=== PATIENT | female | born 1935 | race Hispanic/Latino ===

== ENCOUNTER 2019-07-14 12:48 | Inpatient (IN) | payer MEDICARE ==
[~2019-07-14] VITALS: Ht 152.4 cm; Wt 58.5 kg
--- OUTSIDE RECORDS SUMMARY | 2019-07-14 12:51 | XMS REPORT ---
Author Author [facility] Address Unknown Phone Unavailable Care Team Providers Care Liberal Arts Teacher Name Role Phone Unavailable Unavailable Payers Payer Name Policy Type Policy Number Effective Date Expiration Date Problems This patient has no known problems. Allergies, Adverse Reactions, Alerts Allergy Name Allergy Type Status Severity Reaction(s) Onset Date Inactive Date Treating Clinician Comments No Known Allergies DA Active U 2014-03-04 00:00:00 Medications This patient has no known medications. Results Test Description Test Time Test Comments Text Results Atomic Results Result Comments - CT C-SPINE W/O CONTRAST 2019-07-05 06:09:00 Name: DORON LION [facility] FSED : 1935 Age/S: 83 / F [address] [facility] Unit #: [id number] Loc: [address] Phys: Palmer Kothari [place], [place] [address] Acct: [id number] Dis Date: Status: REG ER PHONE #: Exam Date: 07/05/2019 0557 FAX #: Reason: fall EXAMS: CPT CODE: [id number] CT C-SPINE W/O CONTRAST 27801 Location: T 18 CT cervical spine, 07/05/19 TECHNIQUE: CT examination of the cervical spine without contrast was performed on a helical scanner without contrast with coronal and sagittal reformatted imaging obtained. This was acquired with 2D reformatted acquired using MPR software on CT workstation. Scanning conducted in axial plane from skull base down to upper thoracic spine. 1.25mm contiguous slice thickness acquired . The examination was performed with low radiation dose technique. Automatic exposure control was utilized to reduce radiation dose. Examination conducted on updated helical CT scanner CLINICAL HISTORY: Neck pain. Trauma , patient presenting to the emergency room FINDINGS: There is no acute fracture or subluxation. Cervical spondylosis is seen but without compromise of the canal . Mild curvature of the spine to the left. Significant displacement C5-6 and C6-C7. Assessment of the skull base unremarkable. Prevertebral soft tissues unremarkable. The atlano axial joint is unremarkable . No pneumothorax or rib fracture is seen IMPRESSION: No acute fracture Cervical spondylosis at 0609 Reported and signed by: Naya Beltrán M.D. CC: Alessio Amador MD; Palmer Kothari DO Technologist:Al Villalpando CTDI: DLP: [email or web address] Date/Time: 07/05/2019 (608) [email or web address] Orig Print D/T: S: 07/05/2019 (611) PAGE 1 Signed Report - CT HEAD/BRAIN W/O CONT 2019-07-05 06:01:00 Name: AYADDORON [facility] FSED : 1935 Age/S: 83 / F [address] [facility] [address] Unit #: [id number] Loc: [address] Phys: Palmer Kothari [place], [place] [address] Acct: [id number] Dis Date: Status: REG ER PHONE #: Exam Date: 07/05/2019 0557 FAX #: Reason: fall EXAMS: CPT CODE: [id number] CT HEAD/BRAIN W/O CONT 63254 Location: T 18 CT head, 07/05/19 COMPARISON EXAMS: None of the brain TECHNIQUE: CT examination of the brain was performed without contrast on a helical scanner. Scanning conducted from skull base through the vertex in the axial plane acquiring contiguous 5mm slice thickness . The examination was performed on updated helical CT scanner utilizing low-dose radiation technique. Automatic exposure control timing was utilized to minimize ra diation dose. CLINICAL HISTORY: Trauma, headache. Patient presenting to the emergency room. Status post fall FINDINGS: There is presence of a subcutaneous hematoma seen along the left parietal region without skull fracture or pneumocephalus. Atrophy age appropriate. No acute parenchymal hemorrhage. No positive mass-effect, midline shift, extra-axial fluid collections or intracranial hemorrhages seen. In particular, no subarachnoid hemorrhage is identified. No intra or extra-axial masses. No skull fracture is seen. The globes are intact. No acute territorial infarction is seen. No cerebral edema is seen. No significant sinus disease is seen. IMPRESSION: No acute finding other than a scalp hematoma at 0601 Reported and signed by: Naya Calderon M.D. CC: Alessio Amador MD; Palmer Kothari DO Technologist:Al Villalpando CTDI: DLP: Trnscb Date/Time: 07/05/2019 (600) [email or web address] Orig Print D/T: S: 07/05/2019 (604) PAGE 1 Signed Report
[2019-07-14] MEDS ORDERED: ASPIRIN 81 MG CHEW TAB PO ONE (13:15)
[2019-07-14] MEDS ORDERED: ONDANSETRON HCL INJ 2MG/ML 2ML 2 MG/ML VIAL IV NR (13:30)
[2019-07-14 13:36] LABS: LYMPHOCYTES # (AUTO) 0.2 (1.0-3.2); LYMPHOCYTES % 7.7 % (18.0-39.1); MEAN CORPUSCULAR HEMOGLOBIN 43.5 pg (28-32); MEAN CORPUSCULAR HGB CONC 34.6 g/dL (31-35); MEAN CORPUSCULAR VOLUME 125.9 fL (81-99); MONOCYTES % 1.4 % (4.4-11.3); NEUTROPHILS % 89.5 % (38.7-80.0); PLATELET COUNT 83 x10e3/uL (140-360); RED BLOOD COUNT 1.08 x10e6/uL (3.6-5.1); RED CELL DISTRIBUTION WIDTH 15.9 % (11.7-14.4)
[2019-07-14 13:43] LABS: BILIRUBIN,URINE NEGATIVE (NEGATIVE); CLARITY,URINE SL CLOUDY (CLEAR); COLOR,URINE YELLOW (YELLOW); KETONES,URINE NEGATIVE (NEGATIVE); LEUKOCYTE ESTERASE ,URINE MODERATE (NEGATIVE); NITRITE,URINE NEGATIVE (NEGATIVE); PROTEIN,URINE DIPSTICK NEGATIVE (NEGATIVE); URINE UROBILINOGEN 0.2 mg/dL (0.2 - 1)
[2019-07-14 13:48] LABS: INR 1.06; PROTHROMBIN TIME 14.3 seconds (11.9-14.5)
[2019-07-14 13:49] LABS: PARTIAL THROMBOPLASTIN TIME 25.5 seconds (23.8-35.5)
[2019-07-14 13:55] LABS: HEMATOCRIT 13.6 % (34.2-44.1); HEMOGLOBIN 4.7 g/dL (12.0-16.0)
--- NOTE | 2019-07-14 13:55 | NUR ---
LAB CALLED TO REPORT CRITICAL HGB 4.7 AND HCT 13.6, DIESEL MECHANIC APPRENTICE TO COME DOWN TO DEPARTMENT FOR RE-DRAW, ODETTE GARCIA UPDATING ORDERS.
[2019-07-14 13:59] LABS: ALBUMIN 3.1 g/dL (3.5-5.0); ALBUMIN/GLOBULIN RATIO 1.1 (0.8-2.0); ANION GAP 11.2 mmol/L (8-16); CALCIUM 8.6 mg/dL (8.4-10.2); CREATININE, SERUM 1.5 mg/dL (0.57-1.11); POTASSIUM 5.2 mmol/L (3.5-5.1)
[2019-07-14] MEDS ORDERED: SODIUM CHLORIDE 0.9% 250ML 250 ML IV ONE (14:00)
[2019-07-14 14:02] LABS: BACTERIA,URINE MANY /HPF; EPITHELIAL CELLS,URINE FEW /LPF; RBC,URINE 0-5 /HPF (0-5)
[2019-07-14 14:07] LABS: CREATINE KINASE MB 0.5 ng/mL (0-5.0)
--- NOTE | 2019-07-14 14:22 | Diagnostic Imaging Report ---
EXAMINATION: CHEST SINGLE (NOT PORTABLE) INDICATION: Anemia, hypotension, nausea COMPARISON: None FINDINGS: LINES/TUBES:None LUNGS:The lungs are moderately inflated. Patchy airspace opacity at the retrocardiac left lung base partially silhouettes the left hemidiaphragm. PLEURA:No pleural effusion or pneumothorax. MEDIASTINUM:The cardiomediastinal silhouette appears normal in size and shape. BONES/SOFT TISSUES:No acute osseous injury. ABDOMEN:No free air under the diaphragm. IMPRESSION: Patchy retrocardiac left lung base airspace opacity consistent with aspiration or pneumonia in the proper clinical setting. RECOMMENDATIONS: Chest radiograph in 6-8 weeks to assess for resolution. Signed by: Ruperto Palmer MD on 07/14/2019 2:18 PM
[2019-07-14] MEDS ORDERED: CEFTRIAXONE SOD 1 GM/NS 50 ML 50 ML IV ONE ×2 (14:55→18:15)
[2019-07-14] MEDS ORDERED: SODIUM CHLORIDE FLUSH 10 ML SYR INJ PRN (15:15)
[2019-07-14] MEDS ORDERED: ONDANSETRON HCL INJ 2MG/ML 2ML 2 MG/ML VIAL IV PRN (15:15)
[2019-07-14] MEDS ORDERED: DEXTROSE 50% SYRINGE 50 ML IV PRN (16:00)
[2019-07-14] MEDS: INSULIN REGULAR, HUMAN 100 UNIT/1 ML 3ML VIAL SQ SCH ×2 (16:30→21:00)
--- NOTE | 2019-07-14 17:03 | Diagnostic Imaging Report ---
EXAM: CT Chest WITHOUT intravenous contrast 07/14/2019 2:55 PM INDICATION: Shortness of breath. COMPARISON: None TECHNIQUE: Chest was scanned utilizing a multidetector helical scanner from the lung apex through the level of the adrenal glands without administration of IV contrast. Coronal and sagittal reformations were obtained. Routine protocol was performed. IV CONTRAST: None RADIATION DOSE: Total DLP: 400.9 mGy*cm. Dose modulation, iterative reconstruction, and/or weight based adjustment of the mA/kV was utilized to reduce the radiation dose to as low as reasonably achievable. COMPLICATIONS: None FINDINGS: LINES/ TUBES: None. LUNGS AND AIRWAYS: The central airways are patent. There is extensive airspace consolidation at the dependent left lower lobe. Scattered micronodules at the right upper, right middle, and right lower lobes. Bibasilar dependent subsegmental atelectasis. Interlobular septal thickening compatible with mild pulmonary edema. PLEURA: Small left pleural effusion. No pneumothorax. HEART AND MEDIASTINUM: Atrophic thyroid gland. No supraclavicular, axillary, or mediastinal lymphadenopathy. The heart is at the upper limits of normal for size. Scattered atherosclerotic calcifications of the coronary arteries and thoracic aorta. Trace pericardial effusion. Small sliding hiatal hernia. UPPER ABDOMEN: Noncontrast enhanced images of the upper abdomen demonstrate no focal abnormality in the partially visualized liver and spleen. Bilateral adrenal thickening without discrete nodule. BONES: No acute osseous injury. No suspicious lytic or blastic lesions. Degenerative changes of the visualized spine. SOFT TISSUES: Unremarkable. IMPRESSION: Extensive airspace consolidation at the dependent left lower lobe. In the acute setting, this is most likely pneumonia. However, follow-up chest radiograph in 4-6 weeks is recommended to document resolution and assess for underlying pulmonary lesion. Mild pulmonary edema. Atherosclerotic vascular calcifications including of the coronary arteries. Signed by: Ruperto Palmer MD on 07/14/2019 4:59 PM
[2019-07-14 17:10] VITALS: BP 114/58
[2019-07-14 17:34] LABS: ANISOCYTOSIS SLIGHT; HYPOCHROMASIA MODERATE; LYMPHOCYTES % (MANUAL) 9 % (19-48); MONOCYTES % (MANUAL) 1 % (3.4-9.0); MYELOCYTES % (MANUAL) 1 % (0-0); NEUTROPHILS % (MANUAL) 89 % (40-74)
[2019-07-14 17:35] LABS: PLATELET ESTIMATE SLIGHTLY DECREASED; PLATELET MORPHOLOGY COMMENT NORMAL; POIKILOCYTOSIS SLIGHT; RBC MORPHOLOGY COMMENT NORMAL
[2019-07-14] MEDS ORDERED: IRON PO (17:35)
[2019-07-14] MEDS ORDERED: ALENDRONATE SOD70 MG PO (17:35)
[2019-07-14] MEDS ORDERED: METFORMIN HCL500 MG PO (17:35)
[2019-07-14] MEDS ORDERED: LEVOTHYROXINE88 MCG PO (17:35)
[2019-07-14] MEDS ORDERED: ASPIRIN81 MG PO (17:35)
[2019-07-14] MEDS ORDERED: LEVOTHYROXINE112 MCG PO (17:35)
[2019-07-14] MEDS ORDERED: TRADJENTA5 MG PO (17:36)
[2019-07-14 18:18] VITALS: BP 114/58
--- NOTE | 2019-07-14 18:19 | NUR ---
PATIENT ARRIVED ON THE UNIT FROM ER AT 1657 PER STRETCHER. PATIENT IS ALERT TO SELF ONLY- PATIENT IS IN STABLE CONDITION WITH NO S/S OF RESPIRATORY DISTRESS. NO PAIN VOICED. SKINS INTACT. HEALING HEAD WOUND NOTED ON THE BACK OF THE PATIENT'S HEAD FROM FALL ON 07/04/19. BRUISES NOTED TO RIGHT SIDE OF PATIENT'S BODY AND TO THE PATIENT'S LEFT UPPER ARM. AIR PUMP APPLIED. DAUGHTER PRESENT IN ROOM. BED ALARM APPLIED. CALL LIGHT IS WITHIN REACH, PATIENT INSTRUCTED TO CALL FOR ASSISTANCE NEEDED.
[2019-07-14] MEDS ORDERED: SODIUM CHLORIDE 0.9% 250ML 250 ML ONE ×2 (18:21→22:50)
[2019-07-14 18:29] VITALS: BP 114/58
[2019-07-14] MEDS ORDERED: TRESIBA SC (18:46)
--- NOTE | 2019-07-14 19:34 | NUR ---
PATIENT IS IN STABLE CONDITION WITH NO S/S OF RESPIRATORY DISTRESS. NO PAIN VOICED. BED ALARM APPLIED. FAMILY MEMBERS PRESENT IN THE ROOM. CALL LIGHT IS WITHIN REACH, PATIENT INSTRUCTED TO CALL FOR ASSISTANCE NEEDED. BEDSIDE REPORT GIVEN TO ONCOMING NURSE.
--- NOTE | 2019-07-14 19:36 | NUR ---
PT IS RESTING IN BED WITH FAMILY AT BEDSIDE. RESPIRATION IS EVEN AND UNEVEN LABORED, NO DISTRESS NOTED. BED IN IN THE LOWEST POSITION, LOCKED, AND CALL LIGHT WITHIN REACH. WILL CONTINUE TO MONITOR.
[2019-07-14 19:40] VITALS: BP 103/50
--- NOTE | 2019-07-14 22:50 | NUR ---
FIRST UNIT OF BLOOD STARTED. NO REACTION NOTED SO FAR. WILL CONTINUE TO MONITOR.
[2019-07-15] VITALS (8 sets, daily range): BP systolic 103–157; BP diastolic 57–85
--- NOTE | 2019-07-15 01:50 | NUR ---
FIRST UNIT OF BLOOD COMPLETE. NO REACTION NOTED. WILL CONTINUE TO MONITOR.
[2019-07-15] MEDS ORDERED: SODIUM CHLORIDE 0.9% 250ML 250 ML ONE ×2 (02:10→06:30)
--- NOTE | 2019-07-15 02:12 | NUR ---
THE 2ND UNIT OF BLOOD STARTED. NO REACTION NOTED. WILL CONTINUE TO MONITOR.
--- NOTE | 2019-07-15 05:24 | NUR ---
SECOND UNIT OF BLOOD COMPLETE. NO REACTION NOTED. WILL CONTINUE TO MONITOR.
[2019-07-15] MEDS: INSULIN REGULAR, HUMAN 100 UNIT/1 ML 3ML VIAL SQ SCH ×6 (07:30→21:00)
--- NOTE | 2019-07-15 08:30 | NUR ---
H&P cc: fatigue/malaise HPI: 83yoF, PCP , developed fatigue and weakness, with resulting falls. Some cough and sob. found to have severe anemia. PMH: DM2, Hypothyroidism, osteoporosis PShx: cholecystecotmy allergies; see emr Fh/SH; ; no cigs meds; see MAR ROS; unreliable V/S: revd PE: tired appearing anicteric ns1s2 mod bs soft nt nd no e/t awake; baird skin dry flat affect labs/med; revd A/P: 83yoF Pancytopenia Severe anemia LACEY Hyperkalemia Left PNA UTI Pulmonary edema Hypothyroidism DM2 PLAN check anemia panel/TSH/hba1c/lipids IV abx IVF; renal U/S PT consult SCD Dispo: Hematology consult; Lion Olson MD, PhD.
[2019-07-15] MEDS: LEVOTHYROXINE SODIUM 88 MCG TAB PO SCH (09:00)
[2019-07-15] MEDS: BENZONATATE 100 MG CAP PO SCH ×3 (13:32→21:26)
[2019-07-15] MEDS: AZITHROMYCIN 500MG/NS 250 ML 250 ML IV SCH (15:00)
[2019-07-15] MEDS ORDERED: CEFTRIAXONE SOD 1 GM/NS 50 ML 50 ML IV SCH (15:00)
[2019-07-15] MEDS ORDERED: FUROSEMIDE INJ 10 MG/ML 4 ML VIAL IV ONE (16:45)
[2019-07-15] MEDS ORDERED: SODIUM CHLORIDE 0.9% 250ML 250 ML IV ONE (16:45)
[2019-07-15 17:27] LABS: HEMOGLOBIN 12.2 g/dL (12.0-16.0); LYMPHOCYTES # (AUTO) 0.4 (1.0-3.2); LYMPHOCYTES % 13.7 % (18.0-39.1); MEAN CORPUSCULAR HEMOGLOBIN 33.2 pg (28-32); MEAN CORPUSCULAR HGB CONC 34.9 g/dL (31-35); MEAN CORPUSCULAR VOLUME 95.4 fL (81-99); MONOCYTES # (AUTO) 0.1 (0.2-0.8); MONOCYTES % 1.8 % (4.4-11.3); NEUTROPHILS # (AUTO) 2.3 (2.1-6.9); PLATELET COUNT 52 x10e3/uL (140-360); RED BLOOD COUNT 3.67 x10e6/uL (3.6-5.1)
[2019-07-15] MEDS: CEFTRIAXONE SOD 1 GM/NS 50 ML 50 ML IV SCH (17:42)
[2019-07-15 17:48] LABS: CHOL/HDL RATIO 3.8 (3.0-3.6)
[2019-07-15 18:08] LABS: FERRITIN 518.83 ng/mL (4.63-204.00); THYROID STIMULATING HORMONE 8.269 uIU/mL (0.350-4.940)
--- NOTE | 2019-07-15 19:14 | NUR ---
Report received from VIJAY Brooks. Patient resting in bed comfortably at this time in no apparent distress. Patients family is at bedside. Call light is in reach, will continue to monitor pt.
[2019-07-16] VITALS (9 sets, daily range): BP systolic 123–182; BP diastolic 60–83
--- NOTE | 2019-07-16 05:02 | NUR ---
IM- progress note O/N no events ROS; unreliable V/S: revd PE: tired appearing anicteric ns1s2 mod bs soft nt nd no e/t awake; baird skin dry flat affect labs/med; revd A/P: 83yoF Pancytopenia Severe anemia LACEY Hyperkalemia Left PNA UTI Pulmonary edema Hypothyroidism DM2 PLAN check anemia panel/TSH/hba1c/lipids IV abx IVF; renal U/S PT consult SCD Dispo: Hematology consult; 07/16 s/p 3units PRBC: Hb better; Hba1c 6.9, LDL 56; check labs; GNR UTI. Lion Olson MD, PhD.
[2019-07-16 06:11] LABS: HEMATOCRIT 31.9 % (34.2-44.1); HEMOGLOBIN 10.8 g/dL (12.0-16.0); LYMPHOCYTES # (AUTO) 0.4 (1.0-3.2); LYMPHOCYTES % 16.4 % (18.0-39.1); MEAN CORPUSCULAR HEMOGLOBIN 32.1 pg (28-32); MEAN CORPUSCULAR HGB CONC 33.9 g/dL (31-35); MEAN CORPUSCULAR VOLUME 94.9 fL (81-99); MONOCYTES % 1.4 % (4.4-11.3); NEUTROPHILS # (AUTO) 1.7 (2.1-6.9); NEUTROPHILS % 80.3 % (38.7-80.0); PLATELET COUNT 57 x10e3/uL (140-360); RED BLOOD COUNT 3.36 x10e6/uL (3.6-5.1); RED CELL DISTRIBUTION WIDTH 22.8 % (11.7-14.4)
[2019-07-16 06:27] LABS: ANION GAP 11.2 mmol/L (8-16); CALCIUM 8.3 mg/dL (8.4-10.2); CREATININE, SERUM 1.16 mg/dL (0.57-1.11); POTASSIUM 5.2 mmol/L (3.5-5.1)
[2019-07-16] MEDS: LEVOTHYROXINE SODIUM 88 MCG TAB PO SCH (06:37)
[2019-07-16 07:20] LABS: ANISOCYTOSIS MODERATE; HYPOCHROMASIA MODERATE; LYMPHOCYTES % (MANUAL) 38 % (19-48); MONOCYTES % (MANUAL) 3 % (3.4-9.0); NEUTROPHILS % (MANUAL) 59 % (40-74); RBC MORPHOLOGY COMMENT ABNORMAL
[2019-07-16 07:21] LABS: HYPERSEGMENTED NEUTROPHILS FEW; PLATELET ESTIMATE MARKEDLY DECREASED; PLATELET MORPHOLOGY COMMENT NORMAL
[2019-07-16] MEDS: INSULIN REGULAR, HUMAN 100 UNIT/1 ML 3ML VIAL SQ SCH ×4 (07:30→21:00)
[2019-07-16] MEDS: AZITHROMYCIN 500MG/NS 250 ML 250 ML IV SCH (09:12)
[2019-07-16] MEDS: BENZONATATE 100 MG CAP PO SCH ×3 (09:12→21:00)
[2019-07-16] MEDS: CEFTRIAXONE SOD 1 GM/NS 50 ML 50 ML IV SCH (16:57)
--- NOTE | 2019-07-16 19:15 | NUR ---
BS report completed with morning nurse. Pt alert to name. Lying in bed HOB 60 degrees. Denies pain or discomfort at this time. Bed low and locked. Call ovalles within reach. Bed alarm on. Family at bedside. Will continue to monitor.
--- NOTE | 2019-07-16 19:30 | NUR ---
Spoke with Dr. Olson regarding patient's elevated BS 458mg/dl. Dr. Olson ordered to use medium sliding scale for Regular insulin and administer according to scale.
[2019-07-16] MEDS ORDERED: DEXTROSE 50% SYRINGE 50 ML IV PRN (20:00)
--- NOTE | 2019-07-16 21:00 | NUR ---
Admin 20units per medium sliding scale protocol. BS 458mg/dl. Daughter at bedside gave snacks. Patient is alert, no weakness or fatigue noted. Family at bedside. Bed alarm on. will continue to monitor.
--- NOTE | 2019-07-16 22:00 | NUR ---
Patient lying in bed with eyes closed. RR even and unlabored. No s/s acute distress noted. Bed low and locked.
[2019-07-17] VITALS (7 sets, daily range): BP systolic 116–149; BP diastolic 53–88
--- NOTE | 2019-07-17 00:26 | NUR ---
BS 150mg/dl. No acute distress. Patient denies pain or discomfort. BP 116/53, HR85, R20. Afebrile, temp 97.9. Call ovalles within reach.
--- NOTE | 2019-07-17 04:10 | NUR ---
Daughter called for assist, Patient clammy with decreased LOC. Patient responsive to voice and touch, but increased lethargy. BS 37mg/dl. 20gIV right AC flushed, IV infiltrated. New 20g IV started in right hand. Patient given 50ml Dextrose 50%. Patient is more easily aroused. Patient states her name and her daughter's name. Patient denies pain or discomfort. BP 111/65, HR 62, R20. Will continue to monitor.
--- NOTE | 2019-07-17 04:15 | NUR ---
BS 252mg/dl. Patient is sleepy, easily aroused. No acute distress noted. Call ovalles within reach. Will continue to monitor.
--- NOTE | 2019-07-17 06:09 | NUR ---
Spoke with Dr. Olson regarding patient's hypoglycemic episode. Informed doctor patient has no morning labs. Dr. Olson ordered CBC, BMP.
[2019-07-17 06:44] LABS: HEMATOCRIT 32.7 % (34.2-44.1); HEMOGLOBIN 11.1 g/dL (12.0-16.0); LYMPHOCYTES # (AUTO) 0.3 (1.0-3.2); LYMPHOCYTES % 12.1 % (18.0-39.1); MEAN CORPUSCULAR HEMOGLOBIN 32.9 pg (28-32); MEAN CORPUSCULAR HGB CONC 33.9 g/dL (31-35); MONOCYTES # (AUTO) 0.1 (0.2-0.8); MONOCYTES % 2.7 % (4.4-11.3); NEUTROPHILS # (AUTO) 2.1 (2.1-6.9); NEUTROPHILS % 82.5 % (38.7-80.0); PLATELET COUNT 52 x10e3/uL (140-360); RED BLOOD COUNT 3.37 x10e6/uL (3.6-5.1); RED CELL DISTRIBUTION WIDTH 21.8 % (11.7-14.4)
[2019-07-17] MEDS: LEVOTHYROXINE SODIUM 88 MCG TAB PO SCH (06:50)
--- NOTE | 2019-07-17 06:50 | NUR ---
Report given to morning nurse. Pt alert to name, sleepy. Lying in bed HOB 45 degrees. no s/s of pain at this time.
[2019-07-17 07:03] LABS: ANION GAP 9.4 mmol/L (8-16); CALCIUM 8.3 mg/dL (8.4-10.2); CREATININE, SERUM 1.14 mg/dL (0.57-1.11); POTASSIUM 4.4 mmol/L (3.5-5.1)
[2019-07-17] MEDS: INSULIN REGULAR, HUMAN 100 UNIT/1 ML 3ML VIAL SQ SCH (07:30)
[2019-07-17 08:03] LABS: LYMPHOCYTES % (MANUAL) 16 % (19-48); MONOCYTES % (MANUAL) 1 % (3.4-9.0); NEUTROPHILS % (MANUAL) 83 % (40-74)
[2019-07-17 08:04] LABS: PLATELET ESTIMATE MODERATELY DECREASED; PLATELET MORPHOLOGY COMMENT NORMAL; RBC MORPHOLOGY COMMENT NORMAL
[2019-07-17] MEDS: BENZONATATE 100 MG CAP PO SCH ×3 (09:00→21:30)
[2019-07-17] MEDS: AZITHROMYCIN 500MG/NS 250 ML 250 ML IV SCH (09:24)
--- NOTE | 2019-07-17 10:46 | NUR ---
/IM- progress note O/N no events ROS; unreliable V/S: revd PE: tired appearing anicteric ns1s2 mod bs soft nt nd no e/t awake; baird skin dry flat affect labs/med; revd A/P: 83yoF Pancytopenia Severe anemia LACEY Hyperkalemia Left PNA UTI Pulmonary edema Hypothyroidism DM2 PLAN check anemia panel/TSH/hba1c/lipids IV abx IVF; renal U/S PT consult SCD Dispo: Hematology consult; 07/16 s/p 3units PRBC: Hb better; Hba1c 6.9, LDL 56; check labs; GNR UTI. 07/17 E,coli UTI; Hb stable; check renal U/S Lion Olson MD, PhD.
[2019-07-17] MEDS: CEFTRIAXONE SOD 1 GM/NS 50 ML 50 ML IV SCH (17:57)
[2019-07-18] VITALS: BP 133/61
[2019-07-18 04:00] VITALS: BP 129/61
[2019-07-18] MEDS: LEVOTHYROXINE SODIUM 88 MCG TAB PO SCH (06:00)
--- NOTE | 2019-07-18 07:08 | NUR ---
RECEIVED PATIENT RESTING IN BED. NO ACUTE DISTRESS NOTED, RESPIRATIONS EVEN AND UNLABORED. PATIENT DENIES PAIN OR DISCOMFORT. CALL LIGHT WITHIN REACH. BED IN THE LOWEST POSITION.
--- NOTE | 2019-07-18 07:21 | NUR ---
D/C summary Principal dx: Pancytopenia Severe anemia LACEY Hyperkalemia Left PNA UTI with E.coli Pulmonary edema Secondary Dx: Hypothyroidism DM2 PLAN check anemia panel/TSH/hba1c/lipids IV abx IVF; renal U/S PT consult SCD Dispo: Hematology consult; 07/16 s/p 3units PRBC: Hb better; Hba1c 6.9, LDL 56; check labs; GNR UTI. 07/17 E,coli UTI; Hb stable; check renal U/S 07/18 cont care; renal fn improving; d/c planning; d/c home f/u pcp 1 week; 1 week and GI 1 week stable d/c>35mins Lion Olson MD, PhD.
[2019-07-18 08:00] VITALS: BP 118/60
[2019-07-18 08:14] VITALS: BP 118/60
[2019-07-18 08:17] LABS: ANION GAP 11.6 mmol/L (8-16); CALCIUM 8.8 mg/dL (8.4-10.2); CREATININE, SERUM 1.05 mg/dL (0.57-1.11); POTASSIUM 4.6 mmol/L (3.5-5.1)
[2019-07-18] MEDS: BENZONATATE 100 MG CAP PO SCH ×2 (10:18→15:33)
[2019-07-18] MEDS: AZITHROMYCIN 500MG/NS 250 ML 250 ML IV SCH (10:21)
--- NOTE | 2019-07-18 10:56 | Diagnostic Imaging Report ---
EXAM: Renal Ultrasound INDICATION: Acute kidney injury COMPARISON: None TECHNIQUE: Transverse and longitudinal images of the kidneys and bladder were obtained. FINDINGS: Right Kidney: Length: 6.7 cm Appearance: Normal echogenicity. Collecting system: No hydronephrosis Stones: None Cyst/Mass: Lower pole 1.3 x 1.2 x 1.5 cm simple cyst. Left Kidney: Length: 8.0 cm Appearance: Normal echogenicity. Collecting system: No hydronephrosis Stones: None Cyst/Mass: Lower pole 0.8 x 0.7 x 0.9 cm simple cyst. Bladder: No mass or calculus. Right ureteral jet seen. Prevoid volume estimate of 183.9 cc. IMPRESSION: No renal calculi or hydronephrosis. Right and left lower pole simple cysts. Signed by: Ruperto Palmer MD on 07/18/2019 10:52 AM
[2019-07-18 12:00] VITALS: BP 122/58
[2019-07-18 16:00] VITALS: BP 116/59
[2019-07-18] MEDS ORDERED: TESSALON PERLE100 MG PO (17:46)
[2019-07-18] MEDS ORDERED: AZITHROMYCIN500 MG PEG (17:48)
[2019-07-18] MEDS ORDERED: KEFLEX500 MG PO (17:52)
--- NOTE | 2019-07-18 18:55 | NUR ---
RECEIVED DC ORDER FROM MD. PATIENT IS IN STABLE CONDITION. IV LINE TO RIGHT HAND DCD WITH TIP INTACT, PRESSURE APPLIED TO SITE, NO BLEEDING NOTED. DISCHARGE TEACHING PROVIDED TO DAUGHTER AND PATIENT, THEY BOTH VERBALIZED UNDERSTANDING. DC FOLDER WITH DC PAPERWORK ON HAND. RX TO BE CALLED IN BY PHYSICIAN TO PATIENT'S PHARMACY # [phone]. PATIENT ACCOMPANIED TO PRIVATE AUTO VIA WHEELCHAIR BY STAFF.
--- NOTE | 2019-07-19 17:36 | NUR ---
RECEIVED CALL FROM PT'S DTR; [facility] REGARDING HH ORDER. VERIFIED DEMOGRAPHICS. DTR REQUESTED A HH AGENCY IN NETWORK W THE PT'S INSURANCE. TVO GIVEN TO JOSLYN AND VIJAY COTA. REFERRAL WAS FAXED TO [facility] @ OFF: [phone] / FAX: [phone]
== END 2019-07-18 18:55 | disposition home or self-care (01) | DRG 808 ==
LOC: ER 12:48 → ERHOLD 15:03 → ER 17:10 → MED/SURG3 17:29
PROVIDERS: ADMIT Internal Medicine; ATTEND Internal Medicine
PROC: 30250N1 (ICD-10-PCS; principal; 2019-07-15)
DX: D61.818 Other pancytopenia (principal); J18.1 Lobar pneumonia, unspecified organism; N39.0 Urinary tract infection, site not specified; N17.9 Acute kidney failure, unspecified; J81.1 Chronic pulmonary edema; D64.9 Anemia, unspecified; E87.5 Hyperkalemia; E11.9 Type 2 diabetes mellitus without complications; B96.20 Unspecified Escherichia coli [E. coli] as the cause of diseases classified elsewhere
CPT/HCPCS: 36415; 71045; 71250; 76770; 80048; 80053; 80061; 81001; 82550; 82553; 82607; 82728; 82948; 83036; 83540; 83880; 84443; 84466; 84484; 85025; 85610; 85730; 86850; 86900; 86920; 87040; 87086; 87186; 93005; 97139; 99284; J0456; J0696; J1817; J2405; J7050; J7799; P9016